=== PATIENT | female | born 1950 | race African-American/Black ===

== ENCOUNTER 2016-09-09 06:58 | Inpatient (IN) | payer MEDICARE, OTHER ==
[2016-08-29 13:09] LABS: HEMATOCRIT 34.6 % (36.0-47.0); HEMOGLOBIN 10.5 g/dL (12.0-15.5); HGB HCT DIFFERENCE -3.1; MEAN CORPUSCULAR HEMOGLOBIN 24.5 pg (27.0-33.4); MEAN CORPUSCULAR HGB CONC 30.4 g/dL (32.0-36.0); MEAN CORPUSCULAR VOLUME 81 fl (80-97); RED BLOOD COUNT 4.29 10^6/uL (3.72-5.28); RED CELL DISTRIBUTION WIDTH 16.1 % (11.5-14.0); WHITE BLOOD COUNT 6.2 10^3/uL (4.0-10.5)
[2016-08-29 13:30] LABS: ANION GAP 12 (5-19); BLOOD UREA NITROGEN 22 mg/dL (7-20); CALCIUM 10.2 mg/dL (8.4-10.2); CARBON DIOXIDE 28 mmol/L (22-30); CHLORIDE 99 mmol/L (98-107); CREATININE RESULT 0.93 mg/dL (0.52-1.25); GLUCOSE 86 mg/dL (75-110); POTASSIUM 3.9 mmol/L (3.6-5.0); SODIUM 138.9 mmol/L (137-145)
[2016-08-29 15:19] LABS: APPEARANCE,URINE SLIGHTLY-CLOUDY; BILIRUBIN,URINE NEGATIVE (NEGATIVE); GLUCOSE, URINE NEGATIVE (NEGATIVE); KETONES,URINE NEGATIVE (NEGATIVE); LEUKOCYTE ESTERASE,URINE NEGATIVE (NEGATIVE); NITRITE,URINE POSITIVE (NEGATIVE); PROTEIN,URINE NEGATIVE (NEGATIVE); URINE SPECIFIC GRAVITY 1.018; UROBILINOGEN,URINE NEGATIVE mg/dL (<2.0)
--- NOTE | 2016-08-29 19:06 | EKG REPORT ---
SEVERITY:- BORDERLINE ECG - WANDERING PACEMAKER PROBABLE LEFT ATRIAL ABNORMALITY CONSIDER OLD INFERIOR [place] : Confirmed by: Caleb Franco MD 29-Aug-2016 19:05:15
[~2016-09-09 06:58] MED LIST: BUPIVACAINE INJ/PF LIPOSOME/PF 266 MG/20 ML SDV INFIL PRN; CEFAZOLIN 1 GM/D5W RTU 1 GM/50 ML RTUPB IV PRN; CEFAZOLIN INJ 1 GM VIAL IV PRN; IBUPROFEN 800 MG in NORMAL SALINE 250 ML IV PRN; LACTATED RINGERS 1000 ML IV PRN; LANSOPRAZOLE 15 MG TAB.RAP.DR PO PRN; LIDOCAINE 0.5% INJ-PF (5 MG/ML) 50 ML SDV SUBCUT PRN; OXYCODONE HCL SR 10 MG TABLET PO PRN; SCOPOLAMINE HYDROBROMIDE 1.5 MG PATCH.TD72 TD PRN; VANCOMYCIN HCL 1,000 MG in DEXTROSE 5%-WATER 250 ML IV PRN
[2016-09-09] MEDS ORDERED: BUPIVACAINE INJ/PF LIPOSOME/PF 266 MG/20 ML SDV ONE (07:40)
[2016-09-09] MEDS ORDERED: THROMBIN (BOVINE) TOPICAL 20000 UNIT VIAL ONE (07:40)
[2016-09-09] MEDS ORDERED: THROMBIN (BOVINE) 5000 UNIT EPITAXIS KIT ONE (07:40)
[2016-09-09] MEDS ORDERED: FENTANYL CITRATE INJ/PF 100 MCG/2 ML AMPUL ONE (07:56)
[2016-09-09] MEDS ORDERED: TRANEXAMIC ACID INJ/PF 1,000 MG/10 ML SDV IV ONE ×2 (07:56→11:47)
[2016-09-09] MEDS ORDERED: PROPOFOL INJ 200 MG/20 ML VIAL IV ONE (07:56)
[2016-09-09] MEDS ORDERED: MIDAZOLAM 2 MG/2 ML INJ ONE (07:56)
[2016-09-09] MEDS ORDERED: DEXMEDETOMIDINE INJ 80 MCG/20 ML VIAL IV ONE (07:57)
[2016-09-09] MEDS ORDERED: MORPHINE SULFATE 10 MG/ML INJ ONE (10:21)
[2016-09-09] MEDS ORDERED: RINGERS SOLUTION,LACTATED 1,000 ML IV PRN (10:48)
[2016-09-09] MEDS ORDERED: OXYCODONE HCL IR 5 MG TABLET PO PRN (10:48)
[2016-09-09] MEDS ORDERED: ZOLPIDEM TARTRATE 5 MG TABLET PO PRN (10:48)
[2016-09-09] MEDS ORDERED: DIPHENHYDRAMINE HCL 50 MG/ML VIAL IV PRN (10:48)
[2016-09-09] MEDS ORDERED: ACETAMINOPHEN 325 MG TABLET PO PRN (10:48)
[2016-09-09] MEDS ORDERED: MAG HYDROX/AL HYDROX/SIMETH SUSP 30 ML UDCUP PO PRN (10:48)
[2016-09-09] MEDS ORDERED: MORPHINE SULFATE 10 MG/ML INJ IM PRN (10:48)
[2016-09-09] MEDS ORDERED: MORPHINE SULFATE 10 MG/ML INJ IV PRN ×3 (10:48)
[2016-09-09] MEDS ORDERED: ONDANSETRON HCL INJ/PF 4 MG/2 ML SDV IV PRN (10:48)
[2016-09-09] MEDS ORDERED: ONDANSETRON 4 MG TAB.RAPDIS PO PRN (10:48)
--- NOTE | 2016-09-09 11:01 | Operative Report ---
Operative Report DATE OF SURGERY: 09/09/16 PREOPERATIVE DIAGNOSIS: Left hip arthritis OPERATION: Left hip arthroplasty SURGEON: REAGAN SINGER ANESTHESIA: GA TISSUE REMOVED OR ALTERED: Femoral head to pathology ESTIMATED BLOOD LOSS: 150 PROCEDURE: Implants used: Femur: Striker accolade to #3 stem Acetabular shell: 54 millimeter hemispherical cup Liner: 36 mm flat cross-link polyethylene liner Head:. 36 mm chrome cobalt head +5 neck extension The patient is placed in a right lateral decubitus position on the operating table. The left lower extremity and hindquarter is prepped and draped in a sterile fashion. A curvilinear incision was made over the greater trochanter a posterior approach the hip was taken. The femoral head is dislocated and the femoral neck transected using an oscillating saw. Attention was next turned to the acetabulum. Soft tissues cleared off the acetabulum using electrocautery. The acetabulum was then prepared using a series of hemispherical reamers until a 53 millimeters reamer is seated. Subsequently a 54 millimeters Chris titanium hemispherical shell is impacted into position and secured with one screw. A standard flat 36 millimeters cross- link liner is impacted into the shell. Attention was next turned to the femur. Access is gained to the femoral canal using a box osteotome to the piriformis fossa. The femur is then prepared using a series of broaches until a number 3 broach is seated. A trial reduction was now performed using a 36 millimeters head with 5 neck. Preoperative leg length was recreated and is excellent anterior posterior stability. A decision was made to proceed with the above construct. All trial implants were removed. The wound is irrigated with pulsed lavage. A number 3 stem is impacted into the femoral canal. A trial reduction was again performed with a 36 mm head and a +5 neck. Findings as previously. The hip was dislocated one last time and the final chrome-cobalt head is impacted onto the trunnion. The hip was reduced. Wound is copiously irrigated with pulsed lavage. Sent closed in layers using interrupted Vicryl followed by pradeep. A sterile dressing is applied and the patient's returned to recovery room in satisfactory patient.
[2016-09-09] MEDS: TRANEXAMIC ACID INJ/PF 1,000 MG/10 ML SDV IV ONE ×2 (12:05→17:16)
[2016-09-09] MEDS ORDERED: LIDOCAINE 2% INJ-PF (20 MG/ML) 10 ML AMPUL ONE (12:47)
[2016-09-09] MEDS ORDERED: ROCURONIUM BROMIDE INJ 50 MG/5 ML VIAL IV ONE ×2 (12:47→12:49)
[2016-09-09] MEDS ORDERED: ONDANSETRON HCL INJ/PF 4 MG/2 ML SDV ONE ×2 (12:47→12:49)
[2016-09-09] MEDS ORDERED: SUCCINYLCHOLINE CHLORIDE INJ 200 MG/10 ML VIAL ONE ×2 (12:47→12:49)
[2016-09-09] MEDS ORDERED: PHENYLEPHRINE HCL INJ/PF 10 MG/1 ML SDV ONE (12:47)
[2016-09-09] MEDS ORDERED: GLYCOPYRROLATE INJ 0.4 MG/2 ML VIAL ONE ×2 (12:47→12:49)
[2016-09-09] MEDS ORDERED: METOCLOPRAMIDE HCL INJ/PF 10 MG/2 ML SDV ONE (12:47)
[2016-09-09] MEDS ORDERED: NEOSTIGMINE METHYLSULFATE 10 MG/10 ML VIAL ONE ×2 (12:47→12:49)
[2016-09-09] MEDS ORDERED: DEXAMETHASONE SOD PHOSPHATE INJ 4 MG/1 ML VIAL ONE (12:49)
[2016-09-09] MEDS ORDERED: IBUPROFEN 800 MG in NORMAL SALINE 250 ML IV SCH ×2 (14:00→19:00)
[2016-09-09] MEDS: SENNOSIDES/DOCUSATE 8.6-50 MG 1 EACH TABLET PO SCH (19:22)
[2016-09-09] MEDS ORDERED: (PENDING PHARMACY ID) (Simvastatin [Simvastatin] 20 MG) PO SCH (22:00)
[2016-09-09] MEDS: RIVAROXABAN 10 MG TABLET PO SCH (22:51)
[2016-09-09] MEDS: SIMVASTATIN 10 MG TABLET PO SCH (22:51)
[2016-09-09] MEDS: OXYCODONE HCL SR 10 MG TABLET PO SCH (22:51)
[2016-09-09] MEDS ORDERED: VANCOMYCIN HCL 1,000 MG in DEXTROSE 5%-WATER 250 ML IV ONE (23:00)
[2016-09-10] MEDS: LANSOPRAZOLE 30 MG TAB.RAP.DR PO SCH (05:57)
[2016-09-10 06:50] LABS: HEMATOCRIT 26.5 % (36.0-47.0); HEMOGLOBIN 8.5 g/dL (12.0-15.5); MEAN CORPUSCULAR HEMOGLOBIN 25.4 pg (27.0-33.4); MEAN CORPUSCULAR HGB CONC 32.3 g/dL (32.0-36.0); MEAN CORPUSCULAR VOLUME 79 fl (80-97); RED BLOOD COUNT 3.36 10^6/uL (3.72-5.28); RED CELL DISTRIBUTION WIDTH 16.4 % (11.5-14.0); WHITE BLOOD COUNT 8.6 10^3/uL (4.0-10.5)
[2016-09-10 07:15] LABS: ANION GAP 8 (5-19); BLOOD UREA NITROGEN 24 mg/dL (7-20); CARBON DIOXIDE 28 mmol/L (22-30); CHLORIDE 99 mmol/L (98-107); CREATININE RESULT 1.09 mg/dL (0.52-1.25); GLUCOSE 101 mg/dL (75-110); POTASSIUM 4.1 mmol/L (3.6-5.0); SODIUM 134.6 mmol/L (137-145)
[2016-09-10] MEDS: LOSARTAN POTASSIUM 50 MG TABLET PO SCH (09:21)
[2016-09-10] MEDS: OXYCODONE HCL SR 10 MG TABLET PO SCH ×2 (09:22→21:19)
[2016-09-10] MEDS: PRENATAL VITAMIN W-O CA NO5/FE FUMARATE/FA CAPSULE PO SCH (09:22)
[2016-09-10] MEDS: SENNOSIDES/DOCUSATE 8.6-50 MG 1 EACH TABLET PO SCH ×2 (09:22→17:31)
[2016-09-10] MEDS: HYDROCHLOROTHIAZIDE 25 MG TABLET PO SCH (09:22)
[2016-09-10] MEDS ORDERED: (PENDING PHARMACY ID) (Losartan/Hydrochlorothiazide [Hyzaar 100-25 Tablet] 1 EACH) PO SCH (10:00)
[2016-09-10] MEDS: IBUPROFEN 800 MG in NORMAL SALINE 250 ML IV SCH ×2 (10:30→17:31)
[2016-09-10] MEDS: RIVAROXABAN 10 MG TABLET PO SCH (21:19)
[2016-09-10] MEDS: SIMVASTATIN 10 MG TABLET PO SCH (21:19)
[2016-09-11] MEDS: IBUPROFEN 800 MG in NORMAL SALINE 250 ML IV SCH ×2 (01:32→09:52)
[2016-09-11] MEDS: LANSOPRAZOLE 30 MG TAB.RAP.DR PO SCH (05:25)
[2016-09-11 05:51] LABS: HEMATOCRIT 25.4 % (36.0-47.0); HEMOGLOBIN 8.2 g/dL (12.0-15.5); HGB HCT DIFFERENCE -0.8; MEAN CORPUSCULAR HEMOGLOBIN 25.5 pg (27.0-33.4); MEAN CORPUSCULAR HGB CONC 32.1 g/dL (32.0-36.0); MEAN CORPUSCULAR VOLUME 80 fl (80-97); RED CELL DISTRIBUTION WIDTH 16.2 % (11.5-14.0); WHITE BLOOD COUNT 8.3 10^3/uL (4.0-10.5)
[2016-09-11] MEDS: SENNOSIDES/DOCUSATE 8.6-50 MG 1 EACH TABLET PO SCH ×2 (09:48→18:07)
[2016-09-11] MEDS: PRENATAL VITAMIN W-O CA NO5/FE FUMARATE/FA CAPSULE PO SCH (09:48)
[2016-09-11] MEDS: OXYCODONE HCL SR 10 MG TABLET PO SCH (09:48)
[2016-09-11] MEDS: HYDROCHLOROTHIAZIDE 25 MG TABLET PO SCH (09:49)
[2016-09-11] MEDS: LOSARTAN POTASSIUM 50 MG TABLET PO SCH (09:49)
[2016-09-11] MEDS: RIVAROXABAN 10 MG TABLET PO SCH (21:16)
[2016-09-11] MEDS: SIMVASTATIN 10 MG TABLET PO SCH (21:16)
[2016-09-11 22:33] LABS: ABSOLUTE EOSINOPHILS # (AUTO) 0.1 10^3/uL (0.0-0.6); ABSOLUTE LYMPHOCYTES (AUTO) 0.8 10^3/uL (0.5-4.7); ABSOLUTE MONOCYTES (AUTO) 0.7 10^3/uL (0.1-1.4); ABSOLUTE NEUT (AUTO) 8.1 10^3/uL (1.7-8.2); BASOPHILS % (AUTO) 0.4 % (0-2); EOSINOPHILS % (AUTO) 0.8 % (0-6); HEMATOCRIT 30.9 % (36.0-47.0); HEMOGLOBIN 10.2 g/dL (12.0-15.5); HGB HCT DIFFERENCE -0.3; LYMPHOCYTES % (AUTO) 8.6 % (13-45); MEAN CORPUSCULAR HEMOGLOBIN 26.6 pg (27.0-33.4); MEAN CORPUSCULAR HGB CONC 33.1 g/dL (32.0-36.0); MEAN CORPUSCULAR VOLUME 81 fl (80-97); MONOCYTES % (AUTO) 7.6 % (3-13); RED BLOOD COUNT 3.84 10^6/uL (3.72-5.28); SEGMENTED NEUTROPHILS % (AUTO) 82.6 % (42-78); WHITE BLOOD COUNT 9.8 10^3/uL (4.0-10.5)
[2016-09-12 05:02] LABS: HEMATOCRIT 28.1 % (36.0-47.0); HEMOGLOBIN 9.3 g/dL (12.0-15.5); HGB HCT DIFFERENCE -0.2; MEAN CORPUSCULAR HEMOGLOBIN 26.2 pg (27.0-33.4); MEAN CORPUSCULAR VOLUME 79 fl (80-97); RED BLOOD COUNT 3.54 10^6/uL (3.72-5.28); RED CELL DISTRIBUTION WIDTH 16.2 % (11.5-14.0)
[2016-09-12] MEDS: LANSOPRAZOLE 30 MG TAB.RAP.DR PO SCH (05:08)
--- NOTE | 2016-09-12 06:46 | PDOC TRANSFER SUMMARY ---
General - Admit/Disc Date/PCP Admission Date/Primary Care Provider: 09/09/16 06:58 MARIANO POZO MD Discharge Date: 09/12/16 - Discharge Diagnosis (1) Arthritis of left hip Is this a current diagnosis for this admission?: YesSummary: Patient is 65-year-old black female with progressive pain and functional disability associated with left hip arthritis. She is admitted for elective left hip arthroplasty. (2) Acute blood loss as cause of postoperative anemia Is this a current diagnosis for this admission?: YesSummary: Patient received 2 units of packed red blood cells on postop day #2. This races her hematocrit 28%. - Additional Information Resuscitation Status: Full Code Discharge Diet: As Tolerated Discharge Activity: Balance Activity w/Rest Home Medications: Ibuprofen [Motrin 600 mg Tablet] 600 mg PO Q8HP PRN #10 tablet 02/13/16 Aspirin [Lo-Dose Aspirin EC] 81 mg PO QPM 08/27/16 Losartan/Hydrochlorothiazide [Hyzaar 100-25 Tablet] 1 each PO DAILY 08/27/16 Tramadol HCl 50 mg PO Q6 PRN 08/27/16 Simvastatin 20 mg PO QHS 08/29/16 Oxycodone HCl [Oxy-Ir 5 mg Tablet] 5 mg PO Q6HP PRN #0 tablet 09/12/16 Rivaroxaban [Xarelto 10 mg Tablet] 10 mg PO QHS #0 tablet 09/12/16 History of Present Illness Admission Date/PCP: 09/09/16 06:58 MARIANO POZO MD Patient complains of: Left hip pain History of Present Illness: TAWANNA ELIAS is a 65 year old female with progressive pain and functional disability secondary left hip osteoarthritis Hospital Course Hospital Course: Patient submitted to the operating room where she undergoes an uncomfortable left hip arthroplasty. She's returned to floor in satisfactory condition. She makes slow steady progress and going with physical therapy. She has a hematocrit that dropped below 24%. She gets 2 units of packed red blood cells for acute blood loss anemia. Dressing is changed on postop day #3. She subsequently ready for discharge to a long-term facility. Physical Exam Vital Signs: Temp Pulse Resp BP Pulse Ox 37.2 C 84 16 110/77 98 09/12/16 04:15 09/12/16 04:15 09/12/16 04:15 09/12/16 04:15 09/12/16 04:15 Intake & Output 09/10/16 09/11/16 09/12/16 06:59 06:59 06:59 Intake Total 3000 2062 2205 Output Total 3400 600 1100 Balance -400 1462 1105 Weight 122.3 kg General appearance: PRESENT: mild distress Head exam: PRESENT: normocephalic Eye exam: PRESENT: EOMI Respiratory exam: PRESENT: unlabored Cardiovascular exam: PRESENT: RRR Pulses: PRESENT: +1 pedal pulses bilateral Vascular exam: PRESENT: normal capillary refill GI/Abdominal exam: PRESENT: soft Rectal exam: PRESENT: deferred Extremities exam: PRESENT: +1 edema, other - Dressing is changed on postop day # 3. Wound is well approximated. Karen in place. There is scant serous drainage. There is no erythema or induration. Musculoskeletal exam: PRESENT: other - Leg lengths are equal. Distal neurovascular examinations intact. Psychiatric exam: PRESENT: appropriate affect, normal mood. ABSENT: homicidal ideation, suicidal ideation Results Laboratory Results: 09/12/16 04:49 09/10/16 06:33 09/09/16 09/11/16 09/12/16 08:20 22:15 04:49 WBC 9.8 11.0 H RBC 3.84 3.54 L Hgb 10.2 L 9.3 L Hct 30.9 L 28.1 L MCV 81 79 L MCH 26.6 L 26.2 L MCHC 33.1 33.0 RDW 16.0 H 16.2 H Plt Count 208 195 Seg Neutrophils % 82.6 H Lymphocytes % 8.6 L Monocytes % 7.6 Eosinophils % 0.8 Basophils % 0.4 Absolute Neutrophils 8.1 Absolute Lymphocytes 0.8 Absolute Monocytes 0.7 Absolute Eosinophils 0.1 Absolute Basophils 0.0 Blood Type A POSITIVE Antibody Screen NEGATIVE Impressions: Chest X-Ray 08/29/16 12:32 IMPRESSION: No acute cardiopulmonary changes. Pelvis X-Ray 09/09/16 10:49 IMPRESSION: Limited films. Left hip replacement in good alignment Status: Imported from PACS Transfer Plan - Disposition Transfer Plan: Patient to be transferred to long-term facility. Follow-up can be with Dr. Rizvi at the [facility] for surgery in 2 weeks for staple removal - Time Spent with Patient Time spent with patient: Less than 30 Minutes Qualifiers PATEINT BEING DISCHARGED WITH ANY OF THE FOLLOWING DIAGNOSIS?: No VTE patient discharged on overlapping Therapy?: Yes Plan Discharge Plan: Patient obese discharge to long-term facility for aggressive physical therapy weightbearing as tolerated ambulation on the left lower extremity Time Spent: Less than 30 Minutes
[2016-09-12] MEDS: HYDROCHLOROTHIAZIDE 25 MG TABLET PO SCH (10:25)
[2016-09-12] MEDS: SENNOSIDES/DOCUSATE 8.6-50 MG 1 EACH TABLET PO SCH (10:25)
[2016-09-12] MEDS: PRENATAL VITAMIN W-O CA NO5/FE FUMARATE/FA CAPSULE PO SCH (10:25)
[2016-09-12] MEDS: LOSARTAN POTASSIUM 50 MG TABLET PO SCH (10:25)
[2016-09-12 14:02] VITALS: BP 115/73
== END 2016-09-12 17:27 | DRG 470 ==
LOC: INOR 06:58 → 4S 13:26
PROVIDERS: ADMIT Orthopaedic Surgery; ATTEND Orthopaedic Surgery
PROC: 0SRB02Z Replacement of Left Hip Joint with Metal on Polyethylene Synthetic Substitute, Open Approach (ICD-10-PCS; principal; 2016-09-09 09:15)
PROC: 30233N1 Transfusion of Nonautologous Red Blood Cells into Peripheral Vein, Percutaneous Approach (ICD-10-PCS; 2016-09-11)
DX: M16.12 Unilateral primary osteoarthritis, left hip (principal); Z68.42 Body mass index [BMI] 45.0-49.9, adult; D62 Acute posthemorrhagic anemia; E87.2 Acidosis; I10 Essential (primary) hypertension; E78.00 Pure hypercholesterolemia, unspecified; Z90.710 Acquired absence of both cervix and uterus; E66.9 Obesity, unspecified; J45.909 Unspecified asthma, uncomplicated; M41.9 Scoliosis, unspecified; Z88.2 Allergy status to sulfonamides; Z79.899 Other long term (current) drug therapy; Z82.61 Family history of arthritis; Z82.3 Family history of stroke; Z80.9 Family history of malignant neoplasm, unspecified; Z79.82 Long term (current) use of aspirin; Z96.653 Presence of artificial knee joint, bilateral; Z96.612 Presence of left artificial shoulder joint
CPT/HCPCS: 01214; 36415; 36430; 71020; 72170; 80048; 81001; 84132; 85025; 85027; 86850; 86900; 86901; 86920; 88304; 88311; 93005; 93010; 94799; C1713; C9290; G8978-GP; G8979-GP; G8987-GO; G8988-GO; J0330; J0690; J1100; J1741; J2250; J2270; J2370; J2405; J2704; J2765; J3010; J3370; J3490; J7050; J7060; P9016

== ENCOUNTER 2016-09-24 14:08 | Emergency (ER) | payer MEDICARE, OTHER ==
--- NOTE | 2016-09-24 14:39 | ER Document Report ---
ED Medical Screen (RME) - General Stated Complaint: BLEEDING FROM WOUND Time seen by provider: 14:37 Mode of Arrival: Medic Information source: Patient Notes: 66-year-old female presents to ED for bleeding more from her left hip postsurgical. She had a hip replacement on September [address] Rizvi. States she saw Dr. Rizvi last or Friday morning and she was bleeding at that time and he did not take the pradeep out. She denies any pain. [facility] is in [facility] post hip replacement. I have greeted and performed a rapid initial assessment of this patient. A comprehensive ED assessment and evaluation of the patient, analysis of test results and completion of medical decision making process will be conducted by an additional ED providers. TRAVEL OUTSIDE OF THE [place] IN LAST 30 DAYS: No - Related Data Allergies/Adverse Reactions: Sulfa (Sulfonamide Antibiotics) Allergy (Verified 08/27/16 15:12) Rash Past Medical History - Past Medical History Cardiac Medical History: Reports: Hx Hypercholesterolemia, Hx Hypertension Denies: Hx Atrial Fibrillation, Hx Congestive Heart Failure, Hx Coronary Artery Disease, Hx Heart Attack, Hx Peripheral Vascular Disease, Hx Pulmonary Embolism, Hx Heart Murmur Pulmonary Medical History: Reports: Hx Asthma - over 5 years ago Denies: Hx Bronchitis, Hx COPD, Hx Pneumonia, Hx Respiratory Failure, Hx Sleep Apnea - will have further testing done, Hx Tuberculosis Renal/ Medical History: Denies: Hx End Stage Renal Disease, Hx Kidney Stones, Hx Peritoneal Dialysis Malignancy Medical History: Denies: Hx Leukemia, Hx Lung Cancer GI Medical History: Reports: Hx Gastroesophageal Reflux Disease - occ.. Denies : Hx Crohn's Disease, Hx Hiatal Hernia, Hx Irritable Bowel, Hx Liver Failure, Hx Ulcer Musculoskeltal Medical History: Reports Hx Arthritis, Denies Hx Fibromyalgia, Denies Hx Muscular Dystrophy Traumatic Medical History: Denies: Hx Fractures Infectious Medical History: Denies: Hx HIV Past Surgical History: Reports: Hx Hysterectomy, Hx Orthopedic Surgery - bilateral knee replacements. Denies: Hx Appendectomy, Hx Bowel Surgery, Hx Section, Hx Cholecystectomy, Hx Colostomy, Hx Coronary Artery Bypass Graft, Hx Gastric Bypass Surgery, Hx Herniorrhaphy, Hx Mastectomy, Hx Pacemaker , Hx Tonsillectomy, Hx Tubal Ligation - Immunizations Hx Diphtheria, Pertussis, Tetanus Vaccination: Yes Physical Exam - Vital signs Vitals: Temp Pulse Resp BP Pulse Ox 98.4 F 87 20 122/59 L 99 09/24/16 14:35 09/24/16 14:35 09/24/16 14:35 09/24/16 14:35 09/24/16 14:35 Course - Vital Signs Vital signs: Temp Pulse Resp BP Pulse Ox 98.4 F 87 20 122/59 L 99 09/24/16 14:35 09/24/16 14:35 09/24/16 14:35 09/24/16 14:35 09/24/16 14:35
[2016-09-24 15:10] LABS: ABSOLUTE EOSINOPHILS # (AUTO) 0.1 10^3/uL (0.0-0.6); ABSOLUTE MONOCYTES (AUTO) 0.6 10^3/uL (0.1-1.4); ABSOLUTE NEUT (AUTO) 7.2 10^3/uL (1.7-8.2); BASOPHILS % (AUTO) 0.3 % (0-2); HEMATOCRIT 30.8 % (36.0-47.0); HEMOGLOBIN 9.9 g/dL (12.0-15.5); HGB HCT DIFFERENCE -1.1; LYMPHOCYTES % (AUTO) 11.5 % (13-45); MEAN CORPUSCULAR HEMOGLOBIN 25.9 pg (27.0-33.4); MEAN CORPUSCULAR HGB CONC 32.2 g/dL (32.0-36.0); MEAN CORPUSCULAR VOLUME 80 fl (80-97); MONOCYTES % (AUTO) 6.7 % (3-13); RED BLOOD COUNT 3.83 10^6/uL (3.72-5.28); RED CELL DISTRIBUTION WIDTH 16.8 % (11.5-14.0); SEGMENTED NEUTROPHILS % (AUTO) 80.5 % (42-78); WHITE BLOOD COUNT 8.9 10^3/uL (4.0-10.5)
[2016-09-24 15:14] LABS: PARTIAL THROMBOPLASTIN TIME 38.3 SEC (23.5-35.8); PROTHROMBIN TIME 15.6 SEC (11.4-15.4)
[2016-09-24 15:30] LABS: ALANINE AMINOTRANSFERASE 32 U/L (9-52); ALKALINE PHOSPHATASE 98 U/L (38-126); ANION GAP 10 (5-19); ASPARTATE AMINO TRANSFERASE 23 U/L (14-36); BILIRUBIN,TOTAL 0.9 mg/dL (0.2-1.3); BLOOD UREA NITROGEN 22 mg/dL (7-20); CALCIUM 9.7 mg/dL (8.4-10.2); CARBON DIOXIDE 29 mmol/L (22-30); CHLORIDE 99 mmol/L (98-107); CREATININE RESULT 1.15 mg/dL (0.52-1.25); GLUCOSE 99 mg/dL (75-110); POTASSIUM 4.1 mmol/L (3.6-5.0); SODIUM 138.3 mmol/L (137-145)
--- NOTE | 2016-09-24 17:26 | ER Document Report ---
ED General - General Chief Complaint: Post Surgical Bleeding Stated Complaint: BLEEDING FROM WOUND Time seen by provider: 17:21 Mode of Arrival: Medic Information source: Patient Notes: This is a 66-year-old female with a history of total knee replacement September 09 who is sent in from [facility] because of increased bloody discharge from the wound site. Patient denies any fever or pain at the site. The patient is undergoing physical therapy at the rehabilitation facility and they've changed dressings 4 times today and sent her in for evaluation. The patient denies any chest pain, shortness of breath, dizzy. He has been undergoing physical therapy and she said it's been good. She denies any, discomfort from the left hip area. TRAVEL OUTSIDE OF THE [place] IN LAST 30 DAYS: No - HPI Onset: Just prior to arrival Onset/Duration: Gradual Quality of pain: No pain Severity: None Pain Level: Denies Associated symptoms: None Exacerbated by: Denies Relieved by: Denies Similar symptoms previously: No Recently seen / treated by doctor: No - Related Data Allergies/Adverse Reactions: Sulfa (Sulfonamide Antibiotics) Allergy (Verified 09/24/16 14:37) Rash Past Medical History - General Information source: Patient - Social History Smoking Status: Never Smoker Cigarette use (# per day): No Chew tobacco use (# tins/day): No Frequency of alcohol use: None Drug Abuse: None Lives with: [facility] Family History: Reviewed & Not Pertinent Patient has suicidal ideation: No Patient has homicidal ideation: No - Past Medical History Cardiac Medical History: Reports: Hx Hypercholesterolemia, Hx Hypertension Denies: Hx Atrial Fibrillation, Hx Congestive Heart Failure, Hx Coronary Artery Disease, Hx Heart Attack, Hx Peripheral Vascular Disease, Hx Pulmonary Embolism, Hx Heart Murmur Pulmonary Medical History: Reports: Hx Asthma - over 5 years ago Denies: Hx Bronchitis, Hx COPD, Hx Pneumonia, Hx Respiratory Failure, Hx Sleep Apnea - will have further testing done, Hx Tuberculosis Renal/ Medical History: Denies: Hx End Stage Renal Disease, Hx Kidney Stones, Hx Peritoneal Dialysis Malignancy Medical History: Denies: Hx Leukemia, Hx Lung Cancer GI Medical History: Reports: Hx Gastroesophageal Reflux Disease - occ.. Denies : Hx Crohn's Disease, Hx Hiatal Hernia, Hx Irritable Bowel, Hx Liver Failure, Hx Ulcer Musculoskeltal Medical History: Reports Hx Arthritis, Denies Hx Fibromyalgia, Denies Hx Muscular Dystrophy Traumatic Medical History: Denies: Hx Fractures Infectious Medical History: Denies: Hx HIV Past Surgical History: Reports: Hx Hysterectomy, Hx Orthopedic Surgery - bilateral knee replacements. Denies: Hx Appendectomy, Hx Bowel Surgery, Hx Section, Hx Cholecystectomy, Hx Colostomy, Hx Coronary Artery Bypass Graft, Hx Gastric Bypass Surgery, Hx Herniorrhaphy, Hx Mastectomy, Hx Pacemaker , Hx Tonsillectomy, Hx Tubal Ligation - Immunizations Hx Diphtheria, Pertussis, Tetanus Vaccination: Yes Review of Systems - Review of Systems Constitutional: denies: Chills, Fever EENT: No symptoms reported Cardiovascular: No symptoms reported Respiratory: No symptoms reported Gastrointestinal: No symptoms reported Genitourinary: No symptoms reported Female Genitourinary: No symptoms reported Musculoskeletal: See HPI Skin: No symptoms reported Hematologic/Lymphatic: No symptoms reported Neurological/Psychological: No symptoms reported Physical Exam - Vital signs Vitals: Temp Pulse Resp BP Pulse Ox 98.4 F 87 20 122/59 L 99 09/24/16 14:35 09/24/16 14:35 09/24/16 14:35 09/24/16 14:35 09/24/16 14:35 Notes: Physical exam: GENERAL: 66-year-old female, alert and oriented 3, no acute distress. HEAD: Atraumatic, normocephalic. EYES: Pupils equal round and reactive to light, extraocular movements intact, sclera anicteric, conjunctiva are normal. ENT: Moist mucous membranes. NECK: Normal range of motion, supple without lymphadenopathy LUNGS: Breath sounds clear to auscultation bilaterally and equal. No wheezes rales or rhonchi. HEART: Regular rate and rhythm without murmurs, rubs or gallops. ABDOMEN: Soft, normoactive bowel sounds. No tenderness to palpation. No guarding, no rebound. No masses appreciated. EXTREMITIES: Left hip: Harper are intact. There is no phone dehiscence. There is no significant erythema. there is no warmth or pus discharge from the wound. No obvious hematoma felt. There is some serosanguineous discharge from the inferior portion of the wound in between pradeep. Significant palpation to the area does not elicit any pus discharge however. Distally, the extremity is warm and well perfused, no significant erythema suggestive of infection. No calf tenderness. Both lower extremities are equal in size. NEUROLOGICAL: Cranial nerves II through XII grossly intact. Normal speech, normal gait. PSYCH: Normal mood, normal affect. SKIN: As noted under the extremity exam. Course - Re-evaluation Re-evalutation: 09/24/16 17:25 I discussed case with Dr. Rizvi: He recommended taking the patient off of Xeralto and on aspirin. I discussed the plan with patient and she is happy with that. Dr. Rizvi would like to see the patient in his office at the end of the week. 09/24/16 17:41 I discussed case with Marci Lee and I confirm that the patient is on a baby aspirin and Xarelto. I instructed her over the phone that we will be stopping the Xarelto an increasing the aspirin to [address] Pozo paged 09/25/16 00:19 - Vital Signs Vital signs: Temp Pulse Resp BP Pulse Ox 98.4 F 71 20 114/62 97 09/24/16 14:35 09/24/16 19:17 09/24/16 14:35 09/24/16 19:17 09/24/16 19:17 - Laboratory Result Diagrams: 09/24/16 14:50 09/24/16 14:50 Laboratory results interpreted by me: 09/24/16 09/24/16 09/24/16 14:50 14:50 14:50 Hgb 9.9 L Hct 30.8 L MCH 25.9 L RDW 16.8 H Seg Neutrophils % 80.5 H Lymphocytes % 11.5 L PT 15.6 H APTT 38.3 H BUN 22 H Est GFR ( Amer) 57 L Est GFR (Non-Af Amer) 47 L Discharge - Discharge Clinical Impression: wound drainage Condition: Stable Disposition: HOME, SELF-CARE Additional Instructions: Recommendations are to stop the Xarelto. Change the aspirin to [address] Rizvi would like to see the patient in the office this or Friday. Call the office tomorrow morning to schedule an appointment for this or Friday. Return to the emergency room for fever (temperature greater than 100.5), worsening drainage or any concerns that the wound is getting infected. Referrals: MARIANO POZO MD [Primary Care Provider] - Follow up as needed
[2016-09-24 19:19] VITALS: BP 114/62
== END 2016-09-24 19:17 | disposition home or self-care (01) ==
LOC: ER 14:08
DX: L76.22 Postprocedural hemorrhage of skin and subcutaneous tissue following other procedure (principal); Y83.8 Other surgical procedures as the cause of abnormal reaction of the patient, or of later complication, without mention of misadventure at the time of the procedure; I10 Essential (primary) hypertension; J45.909 Unspecified asthma, uncomplicated; Z88.2 Allergy status to sulfonamides; Z96.653 Presence of artificial knee joint, bilateral; Z79.01 Long term (current) use of anticoagulants; Z79.82 Long term (current) use of aspirin
CPT/HCPCS: 36415; 80053; 85025; 85610; 85730; 99284

== ENCOUNTER 2016-09-30 06:33 | Inpatient (IN) | payer MEDICARE, OTHER ==
[2016-09-30] MEDS ORDERED: THROMBIN (BOVINE) TOPICAL 20000 UNIT VIAL ONE (07:21)
[2016-09-30] MEDS ORDERED: THROMBIN (BOVINE) 5000 UNIT EPITAXIS KIT ONE (07:22)
[2016-09-30] MEDS ORDERED: BACITRACIN INJ 50,000 UNIT VIAL ONE (07:22)
[2016-09-30] MEDS ORDERED: SUCCINYLCHOLINE CHLORIDE INJ 200 MG/10 ML VIAL ONE (09:16)
[2016-09-30] MEDS ORDERED: DEXAMETHASONE SOD PHOSPHATE INJ 4 MG/1 ML VIAL ONE (09:16)
[2016-09-30] MEDS ORDERED: ONDANSETRON HCL INJ/PF 4 MG/2 ML SDV ONE (09:16)
[2016-09-30 09:46] LABS: HEMATOCRIT 28.9 % (36.0-47.0); HEMOGLOBIN 9.2 g/dL (12.0-15.5); HGB HCT DIFFERENCE -1.3; MEAN CORPUSCULAR HEMOGLOBIN 25.3 pg (27.0-33.4); MEAN CORPUSCULAR HGB CONC 31.9 g/dL (32.0-36.0); MEAN CORPUSCULAR VOLUME 79 fl (80-97); RED BLOOD COUNT 3.64 10^6/uL (3.72-5.28); RED CELL DISTRIBUTION WIDTH 16.6 % (11.5-14.0); WHITE BLOOD COUNT 6.1 10^3/uL (4.0-10.5)
[2016-09-30 09:52] LABS: PROTHROMBIN TIME 13.9 SEC (11.4-15.4)
[2016-09-30 09:53] LABS: PARTIAL THROMBOPLASTIN TIME 31.6 SEC (23.5-35.8)
[2016-09-30 09:57] LABS: APPEARANCE,URINE SLIGHTLY-CLOUDY; BILIRUBIN,URINE NEGATIVE (NEGATIVE); GLUCOSE, URINE NEGATIVE (NEGATIVE); KETONES,URINE NEGATIVE (NEGATIVE); LEUKOCYTE ESTERASE,URINE NEGATIVE (NEGATIVE); NITRITE,URINE NEGATIVE (NEGATIVE); PROTEIN,URINE NEGATIVE (NEGATIVE); URINE SPECIFIC GRAVITY 1.015; UROBILINOGEN,URINE NEGATIVE mg/dL (<2.0)
[2016-09-30 10:09] LABS: ANION GAP 9 (5-19); BLOOD UREA NITROGEN 24 mg/dL (7-20); CALCIUM 9.6 mg/dL (8.4-10.2); CARBON DIOXIDE 28 mmol/L (22-30); CHLORIDE 102 mmol/L (98-107); CREATININE RESULT 1.16 mg/dL (0.52-1.25); GLUCOSE 84 mg/dL (75-110); POTASSIUM 3.9 mmol/L (3.6-5.0); SODIUM 139.1 mmol/L (137-145)
[2016-09-30] MEDS ORDERED: FENTANYL CITRATE INJ/PF 100 MCG/2 ML AMPUL ONE ×3 (10:57→14:02)
[2016-09-30] MEDS ORDERED: HYDROMORPHONE HCL INJ/PF 2 MG/ML AMPULE ONE (10:57)
[2016-09-30] MEDS ORDERED: MIDAZOLAM 2 MG/2 ML INJ ONE (10:58)
[2016-09-30] MEDS ORDERED: PROPOFOL INJ 200 MG/20 ML VIAL IV ONE ×2 (10:59→14:01)
[2016-09-30] MEDS ORDERED: ACETAMINOPHEN 100 ML IV ONE ×2 (12:45→19:30)
[2016-09-30] MEDS ORDERED: TRANEXAMIC ACID INJ/PF 1,000 MG/10 ML SDV IV ONE ×2 (12:47→17:00)
[2016-09-30] MEDS ORDERED: DIPHENHYDRAMINE HCL 50 MG/ML VIAL IV PRN ×2 (12:59→13:32)
[2016-09-30] MEDS ORDERED: FENTANYL CITRATE INJ/PF 100 MCG/2 ML AMPUL IV PRN ×3 (12:59)
[2016-09-30] MEDS ORDERED: PROMETHAZINE HCL INJ 25 MG/1 ML VIAL IV PRN (12:59)
[2016-09-30] MEDS ORDERED: BUPIVACAINE INJ/PF LIPOSOME/PF 266 MG/20 ML SDV ONE (13:04)
[2016-09-30] MEDS ORDERED: VANCOMYCIN HCL INJ 1000 MG VIAL ONE (13:05)
[2016-09-30] MEDS ORDERED: OXYCODONE HCL IR 5 MG TABLET PO PRN ×2 (13:31→13:32)
[2016-09-30] MEDS ORDERED: ACETAMINOPHEN 325 MG TABLET PO PRN (13:32)
[2016-09-30] MEDS ORDERED: MORPHINE SULFATE 10 MG/ML INJ IM PRN (13:32)
[2016-09-30] MEDS ORDERED: MAG HYDROX/AL HYDROX/SIMETH SUSP 30 ML UDCUP PO PRN (13:32)
[2016-09-30] MEDS ORDERED: ZOLPIDEM TARTRATE 5 MG TABLET PO PRN (13:32)
[2016-09-30] MEDS ORDERED: ONDANSETRON HCL INJ/PF 4 MG/2 ML SDV IV PRN (13:32)
[2016-09-30] MEDS ORDERED: MORPHINE SULFATE 10 MG/ML INJ IV PRN ×3 (13:32)
[2016-09-30] MEDS ORDERED: RINGERS SOLUTION,LACTATED 1,000 ML IV PRN (13:32)
[2016-09-30] MEDS ORDERED: ONDANSETRON 4 MG TAB.RAPDIS PO PRN (13:32)
--- NOTE | 2016-09-30 13:39 | Operative Report ---
Operative Report DATE OF SURGERY: 09/30/16 PREOPERATIVE DIAGNOSIS: Wound drainage status post left hip arthroplasty OPERATION: Irrigation debridement of wound with exchange of polyethylene acetabulum and chrome cobalt femoral head SURGEON: REAGAN SINGER TISSUE REMOVED OR ALTERED: Cultures 2 to microbiology. Implants to pathology ESTIMATED BLOOD LOSS: 150 PROCEDURE: With the patient in a right lateral decubitus position on the operative table. The existing pradeep are removed. There is scant serous drainage from several of the staple holes. Subsequently The left lower extremity hindquarter prepped and draped in sterile fashion. The previous incision was used for posterior approach the hip. Cultures are taken from the tissues superficial to the iliotibial band which appears to be intact in terms of the surgical repair. This is irrigated and debrided prior to proceeding, deep to the iliotibial band. There is also tissue taken. After we penetrated through the iliotibial band. The hip was dislocated and the femoral head disimpacted. This extended acetabular liner is removed using an osteotome. The wound is irrigated with pulse lavage using 6 L normal saline and bacitracin and 3 L of normal saline. Subsequently, the acetabular liner is placed. A new femoral head is impacted onto the trunnion. The hip was reduced. It's again irrigated and closed using interrupted PDS followed by nylon. A sterile dressing is applied and the patient's returned to PACU in satisfactory condition.
[2016-09-30] MEDS ORDERED: FENTANYL CITRATE INJ/PF 100 MCG/2 ML AMPUL INJ ONE (14:05)
[2016-09-30] MEDS: SENNOSIDES/DOCUSATE 8.6-50 MG 1 EACH TABLET PO SCH (17:56)
[2016-09-30] MEDS: RIFAMPIN 300 MG CAPSULE PO SCH (17:57)
[2016-09-30] MEDS ORDERED: RIVAROXABAN 10 MG TABLET PO SCH (22:00)
[2016-09-30] MEDS ORDERED: IBUPROFEN INJ 800 MG/8 ML VIAL IV SCH (22:00)
[2016-09-30] MEDS ORDERED: (PENDING PHARMACY ID) (Simvastatin [Simvastatin] 20 MG) PO SCH (22:00)
[2016-09-30] MEDS: IBUPROFEN 800 MG in NORMAL SALINE 250 ML IV SCH (22:17)
[2016-09-30] MEDS: OXYCODONE HCL SR 10 MG TABLET PO SCH (22:17)
[2016-09-30] MEDS: RIVAROXABAN 10 MG TABLET PO SCH (22:18)
[2016-09-30] MEDS: SIMVASTATIN 10 MG TABLET PO SCH (22:18)
[2016-09-30] MEDS: PREGABALIN 75 MG CAPSULE PO SCH (22:18)
[2016-10-01] MEDS ORDERED: VANCOMYCIN HCL 1,000 MG in DEXTROSE 5%-WATER 250 ML IV ONE (01:30)
[2016-10-01] MEDS: IBUPROFEN 800 MG in NORMAL SALINE 250 ML IV SCH ×3 (05:28→21:31)
[2016-10-01] MEDS: LANSOPRAZOLE 30 MG TAB.RAP.DR PO SCH (05:28)
[2016-10-01 06:36] LABS: HEMOGLOBIN 8.2 g/dL (12.0-15.5); HGB HCT DIFFERENCE -1.4; MEAN CORPUSCULAR HEMOGLOBIN 25.3 pg (27.0-33.4); MEAN CORPUSCULAR HGB CONC 31.7 g/dL (32.0-36.0); MEAN CORPUSCULAR VOLUME 80 fl (80-97); RED BLOOD COUNT 3.25 10^6/uL (3.72-5.28); RED CELL DISTRIBUTION WIDTH 16.6 % (11.5-14.0); WHITE BLOOD COUNT 9.4 10^3/uL (4.0-10.5)
--- NOTE | 2016-10-01 06:57 | PDOC PROGRESS REPORT ---
Subjective Progress Note for:: 10/01/16 Subjective:: Patient with only minor complaints of pain Physical Exam Vital Signs: Temp Pulse Resp BP Pulse Ox 37.0 C 78 20 120/56 L 100 09/30/16 20:25 09/30/16 20:25 09/30/16 20:25 09/30/16 20:25 09/30/16 20:25 Intake & Output 09/29/16 09/30/16 10/01/16 06:59 06:59 06:59 Intake Total 14821 Output Total 66887 Balance 440 Weight 124 kg General appearance: PRESENT: no acute distress Head exam: PRESENT: normocephalic Eye exam: PRESENT: EOMI Respiratory exam: PRESENT: unlabored Cardiovascular exam: PRESENT: RRR Pulses: PRESENT: +1 pedal pulses bilateral Vascular exam: PRESENT: normal capillary refill Extremities exam: PRESENT: other - Left hip luis dressing with only minor drainage. Leg lengths are equal. Distal neurovascular examinations intact. Results Laboratory Results: 10/01/16 05:40 09/30/16 09/30/16 09/30/16 09:00 09:10 09:10 WBC 6.1 RBC 3.64 L Hgb 9.2 L Hct 28.9 L MCV 79 L MCH 25.3 L MCHC 31.9 L RDW 16.6 H Plt Count 355 Sodium 139.1 Potassium 3.9 Chloride 102 Carbon Dioxide 28 Anion Gap 9 BUN 24 H Creatinine 1.16 Est GFR ( Amer) 56 L Est GFR (Non-Af Amer) 47 L Glucose 84 Calcium 9.6 Urine Color YELLOW Urine Appearance SLIGHTLY-CLOUDY Urine pH 5.0 Ur Specific [place] 1.015 Urine Protein NEGATIVE Urine Glucose (UA) NEGATIVE Urine Ketones NEGATIVE Urine Blood NEGATIVE Urine Nitrite NEGATIVE Ur Leukocyte Esterase NEGATIVE Urine WBC (Auto) 1 Urine RBC (Auto) 0 10/01/16 05:40 WBC 9.4 RBC 3.25 L Hgb 8.2 L Hct 26.0 L MCV 80 MCH 25.3 L MCHC 31.7 L RDW 16.6 H Plt Count 327 Sodium Potassium Chloride Carbon Dioxide Anion Gap BUN Creatinine Est GFR ( Amer) Est GFR (Non-Af Amer) Glucose Calcium Urine Color Urine Appearance Urine pH Ur Specific [place] Urine Protein Urine Glucose (UA) Urine Ketones Urine Blood Urine Nitrite Ur Leukocyte Esterase Urine WBC (Auto) Urine RBC (Auto) Status: Imported from PACS Assessment & Plan - Diagnosis (1) Drainage from wound Is this a current diagnosis for this admission?: YesPlan: 66-year-old black female approximately 2 weeks status post left hip arthroplasty with persistent drainage. She was taken back to the operating room yesterday for a IND. Gram stain demonstrates only a few polys and no bacteria suggesting potential underlying hematoma/seroma. Final cultures are pending. Patient will be covered with vancomycin and rifampin pending final cultures. Physical therapy is ongoing. - Time Time Spent with patient: 15-24 minutes Anticipated discharge: SNF Within: within 24 hours
[2016-10-01] MEDS ORDERED: MAGNESIUM CITRATE 296 ML BOTTLE PO ONE ×2 (07:00→08:30)
[2016-10-01 07:03] LABS: ANION GAP 7 (5-19); BLOOD UREA NITROGEN 26 mg/dL (7-20); C-REACTIVE PROTEIN 32.6 mg/L (<10.0); CALCIUM 9.4 mg/dL (8.4-10.2); CARBON DIOXIDE 28 mmol/L (22-30); CHLORIDE 102 mmol/L (98-107); CREATININE RESULT 1.09 mg/dL (0.52-1.25); GLUCOSE 91 mg/dL (75-110); SODIUM 136.8 mmol/L (137-145)
[2016-10-01 07:14] LABS: ERYTHROCYTE SEDIMENTATION RATE 71 mm/hr (0-30)
[2016-10-01 07:19] LABS: POTASSIUM 4.8 mmol/L (3.6-5.0)
[2016-10-01] MEDS: OXYCODONE HCL SR 10 MG TABLET PO SCH ×2 (09:03→21:31)
[2016-10-01] MEDS: PRENATAL VITAMIN W-O CA NO5/FE FUMARATE/FA CAPSULE PO SCH (09:04)
[2016-10-01] MEDS: SENNOSIDES/DOCUSATE 8.6-50 MG 1 EACH TABLET PO SCH ×2 (09:04→19:25)
[2016-10-01] MEDS: LOSARTAN POTASSIUM 50 MG TABLET PO SCH (09:04)
[2016-10-01] MEDS: PREGABALIN 75 MG CAPSULE PO SCH ×2 (09:05→21:31)
[2016-10-01] MEDS: RIFAMPIN 300 MG CAPSULE PO SCH ×2 (09:05→19:21)
[2016-10-01] MEDS: HYDROCHLOROTHIAZIDE 25 MG TABLET PO SCH (09:05)
[2016-10-01] MEDS ORDERED: (PENDING PHARMACY ID) (Losartan/Hydrochlorothiazide [Hyzaar 100-25 Tablet] 1 EACH) PO SCH (10:00)
[2016-10-01] MEDS: SIMVASTATIN 10 MG TABLET PO SCH (21:31)
[2016-10-01] MEDS: RIVAROXABAN 10 MG TABLET PO SCH (21:31)
[2016-10-01] MEDS ORDERED: VANCOMYCIN HCL 1,500 MG in DEXTROSE 5%-WATER 250 ML IV SCH (22:00)
[2016-10-02] MEDS: LANSOPRAZOLE 30 MG TAB.RAP.DR PO SCH (05:39)
[2016-10-02] MEDS: IBUPROFEN 800 MG in NORMAL SALINE 250 ML IV SCH ×2 (05:39→14:40)
[2016-10-02 07:12] LABS: HEMATOCRIT 25.3 % (36.0-47.0); HEMOGLOBIN 8.2 g/dL (12.0-15.5); HGB HCT DIFFERENCE -0.7; MEAN CORPUSCULAR HEMOGLOBIN 25.8 pg (27.0-33.4); MEAN CORPUSCULAR HGB CONC 32.5 g/dL (32.0-36.0); MEAN CORPUSCULAR VOLUME 79 fl (80-97); RED BLOOD COUNT 3.18 10^6/uL (3.72-5.28); RED CELL DISTRIBUTION WIDTH 16.9 % (11.5-14.0); WHITE BLOOD COUNT 6.7 10^3/uL (4.0-10.5)
[2016-10-02] MEDS ORDERED: CEFAZOLIN SODIUM 2 GM in DEXTROSE 5%-WATER 100 ML IV SCH (10:00)
[2016-10-02] MEDS: PRENATAL VITAMIN W-O CA NO5/FE FUMARATE/FA CAPSULE PO SCH (11:39)
[2016-10-02] MEDS: CEFAZOLIN 2 GM/D5W RTU 2 GM/50 ML RTUPB IV SCH ×2 (11:42→18:08)
[2016-10-02] MEDS: HYDROCHLOROTHIAZIDE 25 MG TABLET PO SCH (11:49)
[2016-10-02] MEDS: LOSARTAN POTASSIUM 50 MG TABLET PO SCH (11:49)
[2016-10-02] MEDS: OXYCODONE HCL SR 10 MG TABLET PO SCH (12:41)
[2016-10-02] MEDS: SENNOSIDES/DOCUSATE 8.6-50 MG 1 EACH TABLET PO SCH ×2 (12:41→18:09)
[2016-10-02] MEDS: PREGABALIN 75 MG CAPSULE PO SCH ×2 (18:09→21:16)
[2016-10-02] MEDS: SIMVASTATIN 10 MG TABLET PO SCH (21:16)
[2016-10-02] MEDS: RIVAROXABAN 10 MG TABLET PO SCH (21:16)
[2016-10-03] MEDS: CEFAZOLIN 2 GM/D5W RTU 2 GM/50 ML RTUPB IV SCH ×3 (02:19→18:10)
[2016-10-03] MEDS: LANSOPRAZOLE 30 MG TAB.RAP.DR PO SCH (05:13)
--- NOTE | 2016-10-03 06:58 | PDOC PROGRESS REPORT ---
Subjective Progress Note for:: 10/03/16 Subjective:: Patient without complaints Physical Exam Vital Signs: Temp Pulse Resp BP Pulse Ox 36.9 C 79 18 117/63 100 10/03/16 00:02 10/03/16 00:02 10/03/16 00:02 10/03/16 00:02 10/03/16 00:02 Intake & Output 10/01/16 10/02/16 10/03/16 06:59 06:59 06:59 Intake Total 13886 1670 1630 Output Total 87823 Balance 440 1670 1630 Weight 124 kg General appearance: PRESENT: no acute distress Head exam: PRESENT: normocephalic Eye exam: PRESENT: EOMI Respiratory exam: PRESENT: unlabored Cardiovascular exam: PRESENT: RRR GI/Abdominal exam: PRESENT: soft Rectal exam: PRESENT: deferred Extremities exam: PRESENT: other - Left hip luis dressing with some central drainage. Results Laboratory Results: 10/01/16 05:40 10/02/16 06:25 WBC 6.7 RBC 3.18 L Hgb 8.2 L Hct 25.3 L MCV 79 L MCH 25.8 L MCHC 32.5 RDW 16.9 H Plt Count 318 Status: Imported from PACS Assessment & Plan - Diagnosis (1) Drainage from wound Is this a current diagnosis for this admission?: YesPlan: Patient is now growing Proteus, jammie bacteria, and a gram-positive cocci. She is currently receiving Ancef to cover the Proteus. Once the gram-positive cocci has been identified and sensitivities determined, the patient can be transferred back to a long term facility. I've ordered a PICC line. - Time Time Spent with patient: 15-24 minutes Anticipated discharge: SNF Within: within 24 hours
[2016-10-03 07:00] LABS: HEMATOCRIT 23.8 % (36.0-47.0); HGB HCT DIFFERENCE -0.7; MEAN CORPUSCULAR HEMOGLOBIN 25.6 pg (27.0-33.4); MEAN CORPUSCULAR HGB CONC 32.5 g/dL (32.0-36.0); MEAN CORPUSCULAR VOLUME 79 fl (80-97); RED BLOOD COUNT 3.02 10^6/uL (3.72-5.28); RED CELL DISTRIBUTION WIDTH 16.5 % (11.5-14.0); WHITE BLOOD COUNT 6.4 10^3/uL (4.0-10.5)
[2016-10-03 07:06] LABS: HEMOGLOBIN 7.7 g/dL (12.0-15.5)
[2016-10-03] MEDS: PREGABALIN 75 MG CAPSULE PO SCH ×2 (10:12→22:20)
[2016-10-03] MEDS: LOSARTAN POTASSIUM 50 MG TABLET PO SCH (10:12)
[2016-10-03] MEDS: SENNOSIDES/DOCUSATE 8.6-50 MG 1 EACH TABLET PO SCH ×2 (10:13→18:10)
[2016-10-03] MEDS: HYDROCHLOROTHIAZIDE 25 MG TABLET PO SCH (10:13)
[2016-10-03] MEDS: PRENATAL VITAMIN W-O CA NO5/FE FUMARATE/FA CAPSULE PO SCH (10:14)
[2016-10-03] MEDS ORDERED: NORMAL SALINE 10 ML SDV (AFTER EACH USE) IV PRN (12:53)
[2016-10-03] MEDS: RIVAROXABAN 10 MG TABLET PO SCH (22:20)
[2016-10-03] MEDS: SIMVASTATIN 10 MG TABLET PO SCH (22:21)
[2016-10-03] MEDS: NORMAL SALINE 10 ML SDV (SCHEDULED) IV SCH (22:21)
[2016-10-03 23:17] LABS: ABSOLUTE EOSINOPHILS # (AUTO) 0.3 10^3/uL (0.0-0.6); ABSOLUTE LYMPHOCYTES (AUTO) 1.2 10^3/uL (0.5-4.7); ABSOLUTE MONOCYTES (AUTO) 0.7 10^3/uL (0.1-1.4); ABSOLUTE NEUT (AUTO) 4.9 10^3/uL (1.7-8.2); BASOPHILS % (AUTO) 0.4 % (0-2); EOSINOPHILS % (AUTO) 4.2 % (0-6); HEMATOCRIT 26.7 % (36.0-47.0); HEMOGLOBIN 8.8 g/dL (12.0-15.5); HGB HCT DIFFERENCE -0.3; LYMPHOCYTES % (AUTO) 17.2 % (13-45); MEAN CORPUSCULAR HEMOGLOBIN 26.3 pg (27.0-33.4); MEAN CORPUSCULAR HGB CONC 33.1 g/dL (32.0-36.0); MEAN CORPUSCULAR VOLUME 80 fl (80-97); MONOCYTES % (AUTO) 10.1 % (3-13); RED BLOOD COUNT 3.36 10^6/uL (3.72-5.28); RED CELL DISTRIBUTION WIDTH 16.4 % (11.5-14.0); SEGMENTED NEUTROPHILS % (AUTO) 68.1 % (42-78); WHITE BLOOD COUNT 7.2 10^3/uL (4.0-10.5)
[2016-10-04] MEDS: CEFAZOLIN 2 GM/D5W RTU 2 GM/50 ML RTUPB IV SCH ×2 (02:18→10:16)
[2016-10-04] MEDS: LANSOPRAZOLE 30 MG TAB.RAP.DR PO SCH (05:53)
--- NOTE | 2016-10-04 07:09 | PDOC TRANSFER SUMMARY ---
General - Admit/Disc Date/PCP Admission Date/Primary Care Provider: 09/30/16 08:48 MARIANO POZO MD Discharge Date: 10/04/16 - Discharge Diagnosis (1) Drainage from wound Is this a current diagnosis for this admission?: Yes (2) periprosthetic hip infection Is this a current diagnosis for this admission?: YesSummary: Patient is 66-year-old black female, approximate 3 week status post left hip arthroplasty. Postoperative course was notable for increasing drainage from the wound. Patient was admitted and taken back to the operating room for irrigation debridement. (3) Acute blood loss as cause of postoperative anemia Summary: Patient experience a drop in hematocrit blow 24%. Received 2 units of packed red blood cells. - Additional Information Discharge Activity: Balance Activity w/Rest Home Medications: Ibuprofen [Motrin 600 mg Tablet] 600 mg PO Q8HP PRN 10/01/16 Losartan/Hydrochlorothiazide [Hyzaar 100-25 Tablet] 1 each PO DAILY 10/01/16 Rivaroxaban [Xarelto] 10 mg PO QHS 10/01/16 Simvastatin [Zocor 20 mg Tablet] 20 mg PO QHS 10/01/16 Tramadol HCl [Ultram 50 mg Tablet] 50 mg PO Q6HP PRN 10/01/16 History of Present Illness Admission Date/PCP: 09/30/16 08:48 MARIANO POZO MD History of Present Illness: TAWANNA ELIAS is a 66 year old female Hospital Course Hospital Course: 66-year-old black female approximately 2 weeks status post left hip arthroplasty , prostate arthritis with postoperative drainage. Patient was returned to the operating room for irrigation debridement of the left hip wound. Cultures subsequently grew Proteus, MSSA, and jammie bacteria. The patient had a drop in hematocrit received 2 units of packed red blood cells. She is up ambulating without limitation. She has minimal discomfort. Physical Exam Vital Signs: Temp Pulse Resp BP Pulse Ox 37.0 C 74 19 92/61 L 99 10/03/16 23:44 10/03/16 23:44 10/03/16 23:44 10/03/16 23:44 10/03/16 23:44 Intake & Output 10/03/16 10/04/16 10/05/16 06:59 06:59 06:59 Intake Total 1630 2125 Balance 1630 2125 Weight 128.6 kg General appearance: PRESENT: morbidly obese Head exam: PRESENT: normocephalic Eye exam: PRESENT: EOMI Respiratory exam: PRESENT: unlabored Cardiovascular exam: PRESENT: RRR Pulses: PRESENT: +1 pedal pulses bilateral GI/Abdominal exam: PRESENT: soft Rectal exam: PRESENT: deferred Extremities exam: PRESENT: +1 edema Musculoskeletal exam: PRESENT: other - Left hip incision with persistent drainage. Leg lengths are equal. Neurovascular examination is intact. Neurological exam: PRESENT: alert, awake, oriented to person, oriented to place , oriented to time, oriented to situation, CN II-XII grossly intact. ABSENT: motor sensory deficit Results Laboratory Results: 10/03/16 23:00 10/01/16 05:40 10/03/16 10/03/16 10/03/16 06:25 08:43 23:00 WBC 6.4 7.2 RBC 3.02 L 3.36 L Hgb 7.7 L 8.8 L Hct 23.8 L 26.7 L MCV 79 L 80 MCH 25.6 L 26.3 L MCHC 32.5 33.1 RDW 16.5 H 16.4 H Plt Count 299 292 Seg Neutrophils % 68.1 Lymphocytes % 17.2 Monocytes % 10.1 Eosinophils % 4.2 Basophils % 0.4 Absolute Neutrophils 4.9 Absolute Lymphocytes 1.2 Absolute Monocytes 0.7 Absolute Eosinophils 0.3 Absolute Basophils 0.0 Blood Type A POSITIVE Antibody Screen NEGATIVE 09/30/16 12:36 Hip - Left Gram Stain - Final 09/30/16 12:36 Hip - Left Wound Culture - Final Proteus Mirabilis Staphylococcus Aureus No Anaerobic Organisms 09/30/16 12:38 Hip - Deep Wound Gram Stain - Final 09/30/16 12:38 Hip - Deep Wound Wound Culture - Final Proteus Mirabilis Staphylococcus Aureus Corynebacterium Species No Anaerobic Organisms Impressions: Guidance Fluoroscopy 10/03/16 00:00 IMPRESSION: SUCCESSFUL PLACEMENT OF A 5 FR DUAL LUMEN 38 CM PICC IN THE RIGHT BASILIC VEIN. Interventional Vascular Procedure 10/03/16 00:00 IMPRESSION: SUCCESSFUL PLACEMENT OF A 5 FR DUAL LUMEN 38 CM PICC IN THE RIGHT BASILIC VEIN. PICC Line Insertion 10/03/16 08:00 IMPRESSION: SUCCESSFUL PLACEMENT OF A 5 FR DUAL LUMEN 38 CM PICC IN THE RIGHT BASILIC VEIN. Status: Imported from PACS Transfer Plan - Disposition Transfer Plan: [facility]. Plan will be for administration of Ancef 2 g IV every 86 weeks, rifampin 300 mg by mouth twice a day 6 weeks, his relatively 10 mg by mouth daily at bedtime 30 days. Patient has required almost no analgesic medications but will be discharged with a prescription for Toradol. Dressing can be changed on a when necessary basis. Patient can return for [facility] at [facility] for surgery in approximate 2 weeks for reevaluation by Dr. Rizvi - Time Spent with Patient Time spent with patient: Less than 30 Minutes Qualifiers PATEINT BEING DISCHARGED WITH ANY OF THE FOLLOWING DIAGNOSIS?: No VTE patient discharged on overlapping Therapy?: Yes Plan Discharge Plan: Patient to be discharged to a jail facility with ongoing IV antibiotic administration and continued physical therapy
[2016-10-04] MEDS: HYDROCHLOROTHIAZIDE 25 MG TABLET PO SCH (10:16)
[2016-10-04] MEDS: PRENATAL VITAMIN W-O CA NO5/FE FUMARATE/FA CAPSULE PO SCH (10:16)
[2016-10-04] MEDS: SENNOSIDES/DOCUSATE 8.6-50 MG 1 EACH TABLET PO SCH (10:16)
[2016-10-04] MEDS: PREGABALIN 75 MG CAPSULE PO SCH (10:16)
[2016-10-04] MEDS: NORMAL SALINE 10 ML SDV (SCHEDULED) IV SCH (10:17)
[2016-10-04] MEDS: LOSARTAN POTASSIUM 50 MG TABLET PO SCH (10:18)
[2016-10-04 13:27] VITALS: BP 99/56
== END 2016-10-04 17:12 | DRG 467 ==
LOC: INOR 08:48 → EDSTATUS 11:15 → 4S 15:08
PROVIDERS: ADMIT Orthopaedic Surgery; ATTEND Orthopaedic Surgery
PROC: 0SPB09Z Removal of Liner from Left Hip Joint, Open Approach (ICD-10-PCS; 2016-09-30)
PROC: 0SUE09Z Supplement Left Hip Joint, Acetabular Surface with Liner, Open Approach (ICD-10-PCS; 2016-09-30)
PROC: 0S9B0ZZ Drainage of Left Hip Joint, Open Approach (ICD-10-PCS; principal; 2016-09-30 11:15)
PROC: 30233N1 Transfusion of Nonautologous Red Blood Cells into Peripheral Vein, Percutaneous Approach (ICD-10-PCS; 2016-10-03)
PROC: 02HV33Z Insertion of Infusion Device into Superior Vena Cava, Percutaneous Approach (ICD-10-PCS; 2016-10-03)
PROC: B5181ZA Fluoroscopy of Superior Vena Cava using Low Osmolar Contrast, Guidance (ICD-10-PCS; 2016-10-03)
PROC: B548ZZA Ultrasonography of Superior Vena Cava, Guidance (ICD-10-PCS; 2016-10-03)
DX: T84.52XA Infection and inflammatory reaction due to internal left hip prosthesis, initial encounter (principal); D62 Acute posthemorrhagic anemia; B96.4 Proteus (mirabilis) (morganii) as the cause of diseases classified elsewhere; B95.61 Methicillin susceptible Staphylococcus aureus infection as the cause of diseases classified elsewhere
CPT/HCPCS: 01210; 36415; 36430; 36569; 76937; 77001; 80048; 81001; 85025; 85027; 85610; 85652; 85730; 86140; 86850; 86900; 86901; 86920; 87070; 87075; 87077; 87186; 87205; 94799; C9290; G8978-GP; G8979-GP; G8987-GO; G8988-GO; J0131; J0330; J0690; J1100; J1170; J1642; J1741; J2250; J2405; J2704; J3010; J3370; J3490; J7050; J7060; J7120; P9016

== ENCOUNTER → 2017-07-24 | Outpatient (CLI) | payer MEDICARE, OTHER ==
--- NOTE | 2017-07-25 08:28 | XCELERA REPORT ---
[address] [address] Lower Extremity Venous Evaluation Name: TAWANNA ELIAS Age: 66 yrs Gender: Female : 1950 Patient Status: Outpatient Patient Location: Study Date: 07/24/2017 11:09 AM Procedure: A bilateral duplex scan of the lower extremity veins was performed. The evaluation included responses to compression and other maneuvers with patient in the supine and standing positions to assess venous insufficiency. Reason For Study: EDEMA Ordering Physician: JASBIR HU Performed By: Carie Vega Right Sided Venous Evaluation Deep venous system evaluatiion shows patent veins with no obstruction or significant reflux identified. Sapheno Femoral junction: none identified. Femoral vein reflux: none identified Greater Saphenousmid thigh reflux: 1.7 second reflux.3.4 mm. Short Saphenous reflux: none identified. No significant Perforators identified. Left Sided Venous Evaluation Deep venous system evaluatiion shows patent veins with significant reflux identified in the Popliteal vein only. Sapheno Femoral junction: no reflux. Femoral vein reflux: no reflux. Greater Saphenous vein, Proximal thigh: reflux: no reflux. Greater Saphenous vein, Distal thigh: reflux: no reflux. Greater Saphenous vein, Proximal below knee: reflux: no reflux. No significant Perforators identified. Interpretation Summary No duplex evidence of DVT or obstruction in the bilateral lower extremities. Limited reflux as noted. : JASBIR HU > Walter Gonzalez
== END ==
LOC: SP 10:39
PROVIDERS: ATTEND Physician Assistant
DX: R60.0 Localized edema (principal)
CPT/HCPCS: 93970

== ENCOUNTER → 2018-03-26 | Outpatient (CLI) | payer MEDICARE, OTHER ==
--- NOTE | 2018-03-26 20:44 | XCELERA REPORT ---
[address] [address] Transthoracic Echocardiogram Report Name: TAWANNA ELIAS Age: 67 yrs Gender: Female : 1950 Patient Status: Outpatient Patient Location: Study Date: 03/26/2018 10:52 AM Reason For Study: EDEMA Ordering Physician: MARIANO POZO Performed By: Vicky Parker Interpretation Summary technically poor study Limited echo informaltion from this study 1. only by PLAX view, LV function was normal. This is not derived from apical views, ie not biplane LVEF. 2. RH is not assessable due to no RVSP, and poor RH visualisation because only apical 5 and apical Long axis were acquired. 3. No AV and no MV disease. 4. Cause of her edema, not clear from this study due to poor images. MMode/2D Measurements & Calculations RVDd: 3.0 cm LVIDd: 5.2 cm FS: 41.4 % Ao root diam: 3.2 cm IVSd: 1.0 cm LVIDs: 3.0 cm EDV(Teich): 129.1 ml Ao root area: 8.1 cm2 LVPWd: 1.0 cm ESV(Teich): 36.2 ml EF(Teich): 71.9 % LVOT diam: 1.8 cm LVOT area: 2.4 cm2 Doppler Measurements & Calculations MV E max adeline: MV dec slope: Ao V2 max: LV V1 max P.5 cm/sec 160.7 cm/sec 5.9 mmHg MV A max adleine: 352.6 cm/sec2 Ao max PG: LV V1 max: 69.2 cm/sec MV dec time: 0.19 sec 10.3 mmHg 121.2 cm/sec MV E/A: 0.99 JUAN C(V,D): 1.8 cm2 PA V2 max: PI max adeline: 97.1 cm/sec 96.2 cm/sec PA max P.8 mmHgPI max P.7 mmHg PI dec slope: 127.5 cm/sec2 Left Ventricle The left ventricle is normal in size. There is mild concentric left ventricular hypertrophy. The left ventricular ejection fraction is normal. Doppler measurements suggest normal left ventricular diastolic function. Not all wall segments were well visualized. Power Project Manager didnot image standard apical 4 and 2 chamber views, they were apical 5 chambers, and apical long axis view!!! unable to estimate LVEF, and regional wall motion abnormality. The left ventricular apex is not well visualized. Right Ventricle no apical 4 chamber views. Right ventricular function cannot be assessed due to poor image quality. Atria Right atrium not well visualized secondary to technical limitations. The left atrial size is normal. There is no Doppler evidence for an interatrial shunt. Mitral Valve There is mild mitral annular calcification. There is no evidence of mitral valve prolapse. There is no mitral valve stenosis. There is no mitral regurgitation noted. Aortic Valve The aortic valve opens well. The aortic valve is trileaflet. There is no aortic valvular vegetation. There is no aortic valve stenosis. No aortic regurgitation is present. Tricuspid Valve The tricuspid valve is not well visualized secondary to technical limitations. Pulmonic Valve The pulmonic valve is not well visualized. There is a trace or physiologic amount of pulmonic regurgitation. Great Vessels The aortic root is normal size. Effusions Small pericardial effusion. I WMSI = 1.00 % Normal = 100 Segments Size X - Cannot 1 - Normal 2 - 3 - Akinetic4 - 1-2 small Interpret Hypokinetic Dyskinetic 3-5 moderate 5 - 6-14 large Aneurysmal 15-16 diffuse : MARIANO POZO > Caleb Franco
== END ==
LOC: SP 10:38
PROVIDERS: ATTEND Family Medicine
DX: R60.9 Edema, unspecified (principal); I10 Essential (primary) hypertension
CPT/HCPCS: 93306

== ENCOUNTER → 2018-07-09 | Outpatient (CLI) | payer MEDICARE ==
--- NOTE | 2018-07-09 13:11 | RADIOLOGY REPORT (SQ) ---
EXAM DESCRIPTION: CHEST PA/LATERAL COMPLETED DATE/TIME: 07/09/2018 1:02 pm REASON FOR STUDY: SOB COMPARISON: 06/25/2016. EXAM PARAMETERS: NUMBER OF VIEWS: two views TECHNIQUE: Digital Frontal and Lateral radiographic views of the chest acquired. RADIATION DOSE: NA LIMITATIONS: none FINDINGS: LUNGS AND PLEURA: No opacities, masses or pneumothorax. No pleural effusion. MEDIASTINUM AND HILAR STRUCTURES: No masses or contour abnormalities. HEART AND VASCULAR STRUCTURES: Heart normal size. No evidence for failure. BONES: No acute findings. Degenerative changes in the spine. Chronic deformity of the right shoulde r. HARDWARE: Left shoulder prosthesis. OTHER: No other significant finding. IMPRESSION: NO SIGNIFICANT RADIOGRAPHIC FINDING IN THE CHEST. TECHNICAL DOCUMENTATION: JOB ID: [id number] [employer]- All Rights Reserved Reading location - IP/workstation name: [email or web address]
== END ==
LOC: OD 12:54
PROVIDERS: ATTEND Family Medicine
DX: R06.02 Shortness of breath (principal)
CPT/HCPCS: 71046

== ENCOUNTER 2019-01-15 20:38 | Emergency (ER) | payer MEDICARE, OTHER ==
--- NOTE | 2019-01-16 02:22 | ER Document Report ---
Entered by JORDON GREEN SCRIBE 01/16/19 0152 Acting as scribe for:JEANETTE ALVAREZ MD ED Extremity Problem, Lower - General Chief Complaint: Leg Swelling Stated Complaint: POSSIBLE BLOOD CLOTS Time Seen by Provider: 01/16/19 01:37 Primary Care Provider: MARIANO HUMMEL MD [Primary Care Provider] - Follow up as needed Mode of Arrival: Ambulatory Information source: Patient Notes: Patient is a 68-year-old female with hypertension, hyperlipidemia, GERD, arthritis presents to the emergency department from Dr. Hummel's office complaining of right knee pain, warmth and swelling onset 2 weeks ago. Patient states the pain, swelling and warmth is constant throughout the day and worsened when sleeping. Dr. Hummel ordered an outpatient d-dimer yesterday which was found to be elevated and directed the patient come to the emergency department for further evaluation. She denies any other focal symptoms. TRAVEL OUTSIDE OF THE [place] IN LAST 30 DAYS: No - Related Data Allergies/Adverse Reactions: Sulfa (Sulfonamide Antibiotics) Allergy (Verified 01/15/19 22:22) Rash Past Medical History - General Information source: Patient - Social History Smoking Status: Never Smoker Frequency of alcohol use: None Drug Abuse: None Family History: Reviewed & Not Pertinent Patient has suicidal ideation: No Patient has homicidal ideation: No - Past Medical History Cardiac Medical History: Reports: Hx Hypercholesterolemia, Hx Hypertension Pulmonary Medical History: Reports: Hx Asthma - over 5 years ago Neurological Medical History: Renal/ Medical History: Malignancy Medical History: GI Medical History: Reports: Hx Gastroesophageal Reflux Disease - occ. Musculoskeletal Medical History: Reports Hx Arthritis Past Surgical History: Reports: Hx Hysterectomy, Hx Orthopedic Surgery - Right knee replacement x 2, left knee replacement, left shoulder, left hip, - Immunizations Hx Diphtheria, Pertussis, Tetanus Vaccination: Yes Review of Systems - Review of Systems Constitutional: No symptoms reported EENT: No symptoms reported Cardiovascular: No symptoms reported Respiratory: No symptoms reported Gastrointestinal: No symptoms reported Genitourinary: No symptoms reported Female Genitourinary: No symptoms reported Musculoskeletal: See HPI Skin: No symptoms reported Hematologic/Lymphatic: No symptoms reported Neurological/Psychological: No symptoms reported -: Yes All other systems reviewed and negative Physical Exam - Vital signs Vitals: Temp Pulse Resp BP Pulse Ox 98.1 F 78 20 119/73 98 01/15/19 20:56 01/15/19 20:56 01/15/19 20:56 01/15/19 20:56 01/15/19 20:56 - Notes Notes: GENERAL: Alert, interacts well. No acute distress. HEAD: Normocephalic, atraumatic. EYES: Pupils equal, round, and reactive to light. Extraocular movements intact. ENT: Oral mucosa moist, tongue midline. NECK: Full range of motion. Supple. Trachea midline. LUNGS: Clear to auscultation bilaterally, no wheezes, rales, or rhonchi. No respiratory distress. HEART: Regular rate and rhythm. No murmurs, gallops, or rubs. ABDOMEN: Soft, obese, non-tender. Non-distended. Bowel sounds present in all 4 quadrants. No guarding, rigidity, or rebound. EXTREMITIES: Moves all 4 extremities spontaneously. Tender to palpate the anterior knee, noted warmth to the anterior medial knee. Tender to palpate the medial thigh following the greater saphenous. No tenderness to anterior or lateral thigh. No tenderness or swelling to calf or popliteal fossa. NEUROLOGICAL: Alert and oriented x3. Normal speech. PSYCH: Normal affect, normal mood. SKIN: Warm, dry, normal turgor. No rashes or lesions noted. Course - Re-evaluation Re-evalutation: 01/16/19 04:03 Patient's x-ray shows some soft tissue swelling. The uric acid is 8.0, which is elevated. The venous Doppler does not show DVT or SVT. The patient white blood cell count is on the low normal range, without a left shift. The ESR is 33. I suspect this may be gout. A septic joint would be quite unlikely due to this going on for 2 weeks now, and there is no fever and no white blood cell count elevation. - Vital Signs Vital signs: Temp Pulse Resp BP Pulse Ox 98.1 F 78 20 119/73 98 01/15/19 20:56 01/15/19 20:56 01/15/19 20:56 01/15/19 20:56 01/15/19 20:56 - Laboratory Result Diagrams: 01/16/19 02:05 01/16/19 02:05 Laboratory results interpreted by me: 01/16/19 01/16/19 01/16/19 02:05 02:05 02:05 Hgb 11.0 L Hct 34.3 L MCH 25.5 L RDW 15.9 H ESR 33 H D-Dimer 7.34 H BUN 28 H Est GFR ( Amer) 57 L Est GFR (Non-Af Amer) 47 L Uric Acid 8.0 H - Diagnostic Test Radiology reviewed: Image reviewed, Reports reviewed - X-ray of the right knee show some soft tissue swelling. Venous Dopplers negative for DVT or SVT. Discharge - Discharge Clinical Impression: Inflammation of joint of right knee Gout attack Qualifiers: Gout site: unspecified site Gout etiology: unspecified cause Qualified Code(s): M10.9 - Gout, unspecified Condition: Stable Disposition: HOME, SELF-CARE Additional Instructions: Gout You have been diagnosed as having gout. Gout is a problem caused by an excess of uric acid, a natural chemical found in the body. The cause of this disease is unknown. Gout arthritis occurs when crystals of uric acid form in the joints. The big toe is the most common joint involved, but any joint can become affected. Persons with gout may also form uric acid kidney stones, resulting in flank pain and blood in the urine. Nodules of uric acid may form under the skin. The first step of treatment is to decrease the inflammation in the joint with antiinflammatory medication. Medication to lower the uric acid level in the blood may then be prescribed. This medication should be taken regularly, as any sudden change in dosage may provoke an attack of gout. Some foods, such as red meat, can provoke an attack in some gout sufferers. Call the doctor if new symptoms arise, or if you do not improve. Gout Diet Changing your diet can decrease the uric acid in your blood. High levels of uric acid cause gouty arthritis and uric acid kidney stones. If you have gout, you should avoid meats that are high in purine. Meat products to avoid include liver, kidneys, and brains. In general, poultry is better than red meats. Seafoods to avoid include anchovies, sardines, [place], mackerel, and scallops. In addition to limiting purine-rich foods, people with gout should limit protein intake to 10-15% of total calories. Carbohydrate intake should be around 50% of total daily calories. Limit fat intake to 30% of total daily calories. Cholesterol intake should be less than 300 mg/day. Maintain or achieve a healthy body weight. Weight loss should be gradual. Rapid weight loss can actually increase uric acid levels temporarily. Alcohol, especially beer, should be avoided. Get plenty of fluids. This dilutes urinary uric acid, and helps prevent uric acid kidney stones. Drink eight to twelve cups of water daily. I suspect that you may have gout in your right knee causing your discomfort. Your uric acid level was elevated today, and that means you are at risk for developing gout. Start the prednisone as prescribed on Friday. Limit walking during the day for the next few days. Follow-up with Dr. Hummel Friday to recheck your knee and your lab work. RETURN TO THE EMERGENCY ROOM IF ANY NEW OR WORSENING SYMPTOMS. Prescriptions: Prednisone [Deltasone 10 mg Tablet] 10 mg PO ASDIR PRN #21 tablet PRN Reason: Referrals: MARIANO HUMMEL MD [Primary Care Provider] - Follow up as needed Scribe Attestation: 01/16/19 02:23 I personally performed the services described in the documentation, reviewed and edited the documentation which was dictated to the scribe in my presence, and it accurately records my words and actions. I personally performed the services described in the documentation, reviewed and edited the documentation which was dictated to the scribe in my presence, and it accurately records my words and actions.
[2019-01-16 02:25] LABS: ABSOLUTE EOSINOPHILS # (AUTO) 0.2 10^3/uL (0.0-0.6); ABSOLUTE LYMPHOCYTES (AUTO) 1.6 10^3/uL (0.5-4.7); ABSOLUTE MONOCYTES (AUTO) 0.5 10^3/uL (0.1-1.4); ABSOLUTE NEUT (AUTO) 3.5 10^3/uL (1.7-8.2); BASOPHILS % (AUTO) 0.8 % (0-2); EOSINOPHILS % (AUTO) 2.8 % (0-6); HEMATOCRIT 34.3 % (36.0-47.0); LYMPHOCYTES % (AUTO) 27.1 % (13-45); MEAN CORPUSCULAR HEMOGLOBIN 25.5 pg (27.0-33.4); MEAN CORPUSCULAR VOLUME 80 fl (80-97); MONOCYTES % (AUTO) 7.9 % (3-13); PLATELET COUNT 213 10^3/uL (150-450); RED BLOOD COUNT 4.29 10^6/uL (3.72-5.28); RED CELL DISTRIBUTION WIDTH 15.9 % (11.5-14.0); SEGMENTED NEUTROPHILS % (AUTO) 61.4 % (42-78); TOTAL CELLS COUNTED % (AUTO) 100 %; WHITE BLOOD COUNT 5.8 10^3/uL (4.0-10.5)
--- NOTE | 2019-01-16 02:30 | RADIOLOGY REPORT (SQ) ---
EXAM DESCRIPTION: XR KNEE 3 VIEWS COMPLETED DATE/TME: 01/16/2019 01:51 CLINICAL HISTORY: 68 years, Female, Total knee, pain, warmth, swelling COMPARISON: None. NUMBER OF VIEWS: TECHNIQUE: LIMITATIONS: None. FINDINGS: There is soft tissue swelling. No fracture or dislocation. The total knee prosthesis appears to be in satisfactory position. There is no significant sized knee joint effusion. IMPRESSION: Soft tissue swelling. copyright 2010 [employer]- All Rights Reserved
[2019-01-16 02:46] LABS: ALANINE AMINOTRANSFERASE 17 U/L (9-52); ALBUMIN 4.1 g/dL (3.5-5.0); ALKALINE PHOSPHATASE 96 U/L (38-126); ANION GAP 11 (5-19); ASPARTATE AMINO TRANSFERASE 25 U/L (14-36); BILIRUBIN,DIRECT 0.3 mg/dL (0.0-0.4); BILIRUBIN,TOTAL 0.7 mg/dL (0.2-1.3); BLOOD UREA NITROGEN 28 mg/dL (7-20); CALCIUM 9.6 mg/dL (8.4-10.2); CARBON DIOXIDE 28 mmol/L (22-30); CHLORIDE 103 mmol/L (98-107); GLUCOSE 89 mg/dL (75-110); POTASSIUM 3.7 mmol/L (3.6-5.0); SODIUM 141.5 mmol/L (137-145); TOTAL PROTEIN 7.4 g/dL (6.3-8.2)
[2019-01-16 02:47] LABS: C-REACTIVE PROTEIN < 5.0 mg/L (<10.0)
[2019-01-16 03:01] LABS: ERYTHROCYTE SEDIMENTATION RATE 33 mm/hr (0-30)
[2019-01-16] MEDS ORDERED: PREDNISONE 20 MG TABLET PO ONE (04:01)
[2019-01-16] MEDS ORDERED: COLCHICINE 0.6 MG TABLET PO ONE (04:02)
[2019-01-16 04:34] VITALS: BP 120/74
== END 2019-01-16 04:34 | disposition home or self-care (01) ==
LOC: ER 20:38
DX: M17.11 Unilateral primary osteoarthritis, right knee (principal); M10.9 Gout, unspecified; M25.561 Pain in right knee; I10 Essential (primary) hypertension; J45.909 Unspecified asthma, uncomplicated; Z96.653 Presence of artificial knee joint, bilateral; Z88.2 Allergy status to sulfonamides
CPT/HCPCS: 99283; 36415; 82607; 82728; 83540; 83550; 84550; 85025; 85652; 86140; 80053; 85379; 83880; 93971; 71046; 73562; A9270 ×2; J7512

== ENCOUNTER → 2019-01-15 | Outpatient (CLI) | payer MEDICARE, OTHER ==
--- NOTE | 2019-01-15 16:35 | RADIOLOGY REPORT (SQ) ---
EXAM DESCRIPTION: CHEST PA/LATERAL COMPLETED DATE/TIME: 01/15/2019 4:25 pm REASON FOR STUDY: SHORTNESS OF BREATH; ESSENTIAL PRIMARY HYPERTENSION COMPARISON: 07/09/2018. EXAM PARAMETERS: NUMBER OF VIEWS: two views TECHNIQUE: Digital Frontal and Lateral radiographic views of the chest acquired. RADIATION DOSE: NA LIMITATIONS: none FINDINGS: LUNGS AND PLEURA: Mild atelectasis/ scarring in the left lung base. No focal infiltrates, masses or pneumothorax. No pleural effusion. MEDIASTINUM AND HILAR STRUCTURES: No masses or contour abnormalities. HEART AND VASCULAR STRUCTURES: Heart normal size. No evidence for failure. BONES: Chronic changes in the right shoulder. No acute findings. HARDWARE: Left shoulder prosthesis. OTHER: No other significant finding. IMPRESSION: MILD ATELECTASIS/ SCARRING IN THE LEFT LUNG BASE. NO OTHER SIGNIFICANT RADIOGRAPHIC FIN DING IN THE CHEST. TECHNICAL DOCUMENTATION: JOB ID: [id number] [employer]- All Rights Reserved Reading location - IP/workstation name: [email or web address]
[2019-01-15 17:18] LABS: ABSOLUTE EOSINOPHILS # (AUTO) 0.1 10^3/uL (0.0-0.6); ABSOLUTE MONOCYTES (AUTO) 0.3 10^3/uL (0.1-1.4); BASOPHILS % (AUTO) 0.7 % (0-2); EOSINOPHILS % (AUTO) 2.1 % (0-6); HEMATOCRIT 35.4 % (36.0-47.0); HEMOGLOBIN 11.3 g/dL (12.0-15.5); LYMPHOCYTES % (AUTO) 23.2 % (13-45); MEAN CORPUSCULAR HEMOGLOBIN 25.5 pg (27.0-33.4); MEAN CORPUSCULAR HGB CONC 31.9 g/dL (32.0-36.0); MEAN CORPUSCULAR VOLUME 80 fl (80-97); MONOCYTES % (AUTO) 5.7 % (3-13); PLATELET COUNT 208 10^3/uL (150-450); RED BLOOD COUNT 4.43 10^6/uL (3.72-5.28); RED CELL DISTRIBUTION WIDTH 15.9 % (11.5-14.0); SEGMENTED NEUTROPHILS % (AUTO) 68.3 % (42-78); TOTAL CELLS COUNTED % (AUTO) 100 %; WHITE BLOOD COUNT 4.4 10^3/uL (4.0-10.5)
[2019-01-15 17:38] LABS: ALANINE AMINOTRANSFERASE 21 U/L (9-52); ALBUMIN 4.4 g/dL (3.5-5.0); ALKALINE PHOSPHATASE 102 U/L (38-126); ANION GAP 10 (5-19); ASPARTATE AMINO TRANSFERASE 23 U/L (14-36); BILIRUBIN,DIRECT 0.3 mg/dL (0.0-0.4); BILIRUBIN,TOTAL 0.8 mg/dL (0.2-1.3); BLOOD UREA NITROGEN 28 mg/dL (7-20); CARBON DIOXIDE 28 mmol/L (22-30); CHLORIDE 102 mmol/L (98-107); GLUCOSE 81 mg/dL (75-110); IRON(TIBC) 63.6 ug/dL (37-170); POTASSIUM 4.3 mmol/L (3.6-5.0); TOTAL PROTEIN 7.7 g/dL (6.3-8.2)
== END ==
LOC: OD 15:54
PROVIDERS: ATTEND Family Medicine
DX: I10 Essential (primary) hypertension (principal); D64.9 Anemia, unspecified; R06.02 Shortness of breath
CPT/HCPCS: 36415; 71046; 80053; 82607; 82728; 83540; 83550; 83880; 85025; 85379

== ENCOUNTER → 2019-07-14 | Outpatient (CLI) | payer MEDICARE, OTHER ==
--- NOTE | 2019-07-14 12:29 | RADIOLOGY REPORT (SQ) ---
EXAM DESCRIPTION: KNEE RIGHT 4 VIEWS COMPLETED DATE/TIME: 07/14/2019 11:19 am REASON FOR STUDY: KNEE PAIN, RIGHT ANTERIOR M25.561 PAIN IN RIGHT KNEE COMPARISON: 01/16/2019, 11/22/2014 NUMBER OF VIEWS: Four views. TECHNIQUE: AP, lateral, and both oblique radiographic images acquired of the right knee. LIMITATIONS: None. FINDINGS: MINERALIZATION: Normal. BONES: Total knee replacement with patellar resurfacing. Bone cement along the distal femur and prox imal tibial prostheses. On the oblique views, there is subtle lucency between the bone cement and [place] bone along the dista l femoral prosthesis, marked with an arrow. This could indicate loosening. There is minimal periosteal new bone along the medial tibial metaphysis. This could represent stress reaction from prosthesis loosening. Consider bone scan for followup. JOINT: No effusion. SOFT TISSUES: No soft tissue swelling. No radio-opaque foreign body. OTHER: No other significant finding. IMPRESSION: No acute fracture or joint effusion. Subtle lucency between bone cement and [place] bone in the distal femoral metaphysis, new bony growth along the medial tibial metaphysis. These findings could indicate prosthesis loosening. Consider fo llow-up three-phase bone scan TECHNICAL DOCUMENTATION: JOB ID: [id number] [employer]- All Rights Reserved Reading location - IP/workstation name: [email or web address]
== END ==
LOC: OD 11:04
PROVIDERS: ATTEND Physician Assistant
DX: M25.561 Pain in right knee (principal)